=== PATIENT | male | born 1970 | race Caucasian/White ===

== ENCOUNTER 2022-10-02 11:54 | Emergency (ER) | payer OTHER, SELFPAY ==
[2022-10-02] VITALS (16 sets, daily range): BP systolic 135–163; BP diastolic 87–117; PULSE 75–100; RESP 6–29; TEMP 36.6; O2SAT 93; BMI 31.7
--- NOTE | 2022-10-02 12:45 | ECG_ITS ---
[facility] Test Date: 2022-10-02 Pat Name: JORGE BUENO Department: Room: - Gender: Male [employer]: : 1970 Requested By: Order Number: [id number] Reading MD: TUTU VILLELA Measurements Intervals [place] Rate: 76 P: 43 NV: 160 QRS: -1 QRSD: 98 T: 7 QT: 354 QTc: 384 Interpretive Statements 1100 Sinus rhythm 2440 Incomplete right bundle branch block 8102 Low QRS voltage in chest leads 9130 borderline ECG No previous ECG available for comparison Electronically Signed On 10-03-2022 6:57:27 EDT by TUTU VILLELA
--- NOTE | 2022-10-02 12:46 | CT_ITS ---
The [address] [address] Patient Name: JORGE BUENO MRN: [id number] date: 1970 Sex: M Assigned Patient Location: ER Current Patient Location: Accession/Order Number: [id number] Exam Date: 10/02/2022 13:00 Report Date: 10/02/2022 13:16 At the request of: DELGADO JOHNSON Procedure: CT head/brain wo con EXAM: CT head/brain wo con HISTORY: vertigo COMPARISON: None. TECHNIQUE: Axial CT scans through the head were obtained without IV contrast administration. Dose reduction techniques were achieved by using: automated exposure control and/or adjustment of mA and /or kV according to patient size and/or use of iterative reconstruction technique. FINDINGS: There is no evidence of acute intracranial hemorrhage or abnormal extra-axial fluid collection. No mass effect or midline shift is seen. There is no evidence of large acute territorial infarction. There is no hydrocephalus. To the limit of CT, the posterior fossa appears unremarkable. No definite acute fracture is identified. Soft tissues are unremarkable. The visualized orbits show no abnormal mass. The visualized paranasal sinuses show no air-fluid level. Mastoid air cells are clear. IMPRESSION: No CT evidence of acute intracranial abnormality. If there is sufficient clinical concern for acute brain parenchymal pathology, consider MRI for further evaluation. Electronically authenticated by: FRANKY LYNN Date: 10/02/2022 13:16
[2022-10-02] MEDS: ONDANSETRON PF 4 MG/2 ML VIAL IV (13:04)
[2022-10-02] MEDS: 0.9 % SODIUM CHLORIDE 1,000 ML 999 ML IV (13:04)
[2022-10-02] MEDS: MECLIZINE HCL 12.5 MG TABLET 25 MG PO (13:04)
--- NOTE | 2022-10-02 13:22 | ED.DIZZY1 ---
HPI - Dizziness General Chief Complaint: Dizziness Stated Complaint: GENERAL WEAKNESS Time Seen by Provider: 10/02/22 12:45 Source: patient Mode of arrival: walk-in Limitations: no limitations History of Present Illness HPI Narrative: was dizzy and nauseous yesterday but was tolerable. However when he woke this morning it was much worse. he had an intense sensation of spinning and felt like he was going to pass out . No headache, visual changes, ringing in the ears, ear pain, sore throat or upper respiratory symptoms. Related Data Previous Rx's Medication Instructions Recorded meclizine 25 mg tablet 25 mg PO .q8hr PRN vertigo #30 tabs 10/02/22 ondansetron 4 mg disintegrating 4 mg PO Q6H PRN nausea #20 tabs 10/02/22 tablet Allergies Allergy/AdvReac Type Severity Reaction Status Date / Time No Known Drug Allergies Allergy Verified 10/02/22 11:59 Exam Narrative Exam Narrative: Nurses notes and vital signs reviewed and patient is not hypoxic. afebrile General: Well-appearing and in no apparent distress. Skin: Warm, dry, no pallor noted. No rash. Head: Normocephalic, atraumatic. Neck: Supple, non-tender. Eye: Pupils are equal, round and EOMI. No scleral icterus. Ears, Nose, Mouth, and Throat: TM are clear, no nasal mucosal hypertrophy. Oral mucosa is moist, no posterior oropharynx erythema, uvula is mid-line Cardiovascular: Regular Rate and Rhythm without murmur, gallop or rub. Respiratory: No accessory muscle use or respiratory distress. Lungs are clear to auscultation, no wheezing, rales or rhonchi Musculoskeletal: normal ROM, no calf or popliteal tenderness, no lower extremity edema/swelling GI: Abdomen is soft, non-distended. Normal bowel sounds. No tenderness to palpation. No rebound, guarding, or rigidity noted. Neurological: A&O x4. No cranial nerve dysfunction observed. No truncal ataxia but head movement exacerbates/worsens the vertigo. Moves all extremities. Sensation intact. Psychiatric: Cooperative and interactive. Normal mood and affect. Constitutional Vital Signs - 24 hr 10/02/22 11:59 10/02/22 12:08 10/02/22 12:09 Temperature 97.9 F Pulse Rate 75 78 Pulse Rate [Monitor] 84 Pulse Rate [orthostatic lying] Pulse Rate [orthostatic sitting] Pulse Rate [orthostatic standing] Respiratory Rate 16 14 16 Blood Pressure Blood Pressure [Right Arm] 135/93 H Blood Pressure [orthostatic lying Right Arm] Blood Pressure [orthostatic sitting Right Arm] Blood Pressure [orthostatic standing Right Arm] Pulse Oximetry 93 L Oxygen Delivery Method Room Air 10/02/22 12:10 10/02/22 12:10 10/02/22 12:30 Temperature Pulse Rate 80 75 85 Pulse Rate [Monitor] Pulse Rate [orthostatic lying] Pulse Rate [orthostatic sitting] Pulse Rate [orthostatic standing] Respiratory Rate 19 13 12 Blood Pressure 143/103 H 143/103 H 136/92 H Blood Pressure [Right Arm] Blood Pressure [orthostatic lying Right Arm] Blood Pressure [orthostatic sitting Right Arm] Blood Pressure [orthostatic standing Right Arm] Pulse Oximetry Oxygen Delivery Method 10/02/22 12:52 10/02/22 12:30 10/02/22 12:50 Temperature Pulse Rate 88 78 Pulse Rate [Monitor] Pulse Rate [orthostatic lying] 87 Pulse Rate [orthostatic sitting] 100 H Pulse Rate [orthostatic standing] 84 Respiratory Rate 21 11 L Blood Pressure 136/92 H 149/87 H Blood Pressure [Right Arm] Blood Pressure [orthostatic lying Right Arm] 149/87 H Blood Pressure [orthostatic sitting Right Arm] 143/97 H Blood Pressure [orthostatic standing Right Arm] 136/109 H Pulse Oximetry Oxygen Delivery Method 10/02/22 12:51 10/02/22 12:52 10/02/22 13:03 Temperature Pulse Rate 82 83 Pulse Rate [Monitor] Pulse Rate [orthostatic lying] Pulse Rate [orthostatic sitting] Pulse Rate [orthostatic standing] Respiratory Rate 12 13 Blood Pressure 143/97 H 136/109 H Blood Pressure [Right Arm] Blood Pressure [orthostatic lying Right Arm] Blood Pressure [orthostatic sitting Right Arm] Blood Pressure [orthostatic standing Right Arm] Pulse Oximetry Oxygen Delivery Method 10/02/22 13:10 Temperature Pulse Rate 82 Pulse Rate [Monitor] Pulse Rate [orthostatic lying] Pulse Rate [orthostatic sitting] Pulse Rate [orthostatic standing] Respiratory Rate 12 Blood Pressure Blood Pressure [Right Arm] Blood Pressure [orthostatic lying Right Arm] Blood Pressure [orthostatic sitting Right Arm] Blood Pressure [orthostatic standing Right Arm] Pulse Oximetry Oxygen Delivery Method Course Vital Signs Vital signs: Vital Signs Temperature 97.9 F 10/02/22 11:59 Pulse Rate 84 10/02/22 11:59 Respiratory Rate 16 10/02/22 11:59 Blood Pressure 135/93 H 10/02/22 11:59 Pulse Oximetry 93 L 10/02/22 11:59 Oxygen Delivery Method Room Air 10/02/22 11:59 Temperature 97.9 F 10/02/22 11:59 Pulse Rate 82 10/02/22 13:10 Respiratory Rate 12 10/02/22 13:10 Blood Pressure 149/87 H 10/02/22 12:52 Pulse Oximetry 93 L 10/02/22 11:59 Oxygen Delivery Method Room Air 10/02/22 11:59 MDM - Dizziness MDM Narrative Medical decision making narrative: Patient was placed on property assessment monitor and EKG obtained. Blood drawn and sent for evaluation. Orthostatics were negative Sent for head CT, which was unremarkable. He had decrease in his nausea after getting MS IVF, IV zofran and oral Meclizine but his vertigo was unchanged. he was ordered to receive IV Valium and IV Solu-medrol. We had EMR problems and went back to paper charting for a while. While we are using EMR again the lab is still down so they are faxing results to us. CBC notable for normal WBC, slightly increased Hb at 17.7, normal platelets. BMP unremarkable with normal electrolytes, slightly elevated Glucose 144 and elevated BUN and Cr at 20, 1.36 Results, diagnosis and plan for out-patient treatment discussed with the patient. He was discharged home with prescriptions for zofran and Meclizine, recommend PCP follow up or ED return if he worsens. Lab Data Attestation: I reviewed the patient's lab results. Lab results narrative: We had EMR problems and went back to paper charting for a while. While we are using EMR again the lab is still down so they are faxing results to us. CBC notable for normal WBC, slightly increased Hb at 17.7, normal platelets. BMP unremarkable with normal electrolytes, slightly elevated Glucose 144 and elevated BUN and Cr at 20, 1.36 Labs: Lab Results 10/02/22 Range/Units 12:31 Sodium 139 (136-145) mmol/L Potassium 4.8 (3.5-5.1) mmol/L Chloride 106 (98-107) mmol/L Carbon Dioxide 27.7 (21.0-32.0) mmol/L Anion Gap 10.1 BUN 20.0 H (7.0-18.0) mg/dL Creatinine 1.36 H (0.70-1.30) mg/dL Est GFR ( Amer) >60 (>=60) Est GFR (Non-Af Amer) 55 L (>=60) BUN/Creatinine Ratio 14.7 Glucose 144 H (74-106) mg/dL Calcium 9.0 (8.5-10.1) mg/dL Imaging Data CT scan - head: Radiologist's impression: Patient Name: JORGE BUENO MRN: [facility]:[id number] date: 1970 Sex: M Assigned Patient Location: ER Current Patient Location: Accession/Order Number: [id number] Exam Date: 10/02/2022 13:00 Report Date: 10/02/2022 13:16 At the request of: DELGADO JOHNSON Procedure: CT head/brain wo con EXAM: CT head/brain wo con HISTORY: vertigo COMPARISON: None. TECHNIQUE: Axial CT scans through the head were obtained without IV contrast administration. Dose reduction techniques were achieved by using: automated exposure control and/or adjustment of mA and /or kV according to patient size and/or use of iterative reconstruction technique. FINDINGS: There is no evidence of acute intracranial hemorrhage or abnormal extra-axial fluid collection. No mass effect or midline shift is seen. There is no evidence of large acute territorial infarction. There is no hydrocephalus. To the limit of CT, the posterior fossa appears unremarkable. No definite acute fracture is identified. Soft tissues are unremarkable. The visualized orbits show no abnormal mass. The visualized paranasal sinuses show no air-fluid level. Mastoid air cells are clear. IMPRESSION: No CT evidence of acute intracranial abnormality. If there is sufficient clinical concern for acute brain parenchymal pathology, consider MRI for further evaluation. Electronically authenticated by: FRANKY LYNN Date: 10/02/2022 13:16 ECG Data Interpretation: EKG interpretation: Emergency Department physician interpretation. Normal sinus rhythm at 76bpm. incomplete right bundle-branch block. No ST segment elevation or depression. Discharge Plan Discharge Chief Complaint: Dizziness Clinical Impression: Benign paroxysmal positional vertigo Patient Disposition: Home, Self-Care Time of Disposition Decision: 14:30 Prescriptions / Home Meds: New meclizine 25 mg tablet 25 mg PO .q8hr PRN (Reason: vertigo) Qty: 30 0RF ondansetron 4 mg tablet,disintegrating 4 mg PO Q6H PRN (Reason: nausea) Qty: 20 0RF Instructions: Benign Paroxysmal Positional Vertigo (ED) Stand Alone Forms: Portal Instructions Referrals: Physician,Non-Staff, MD [Primary Care Provider] - 1 week
[2022-10-02 14:15] LABS: Anion Gap 10.1; BUN Creatinine Ratio 14.7; Carbon Dioxide 27.7 mmol/L (21.0-32.0); Chloride 106 mmol/L (98-107); Estimated GFR (African America >60 (>=60); Estimated GFR (Non-African Ame 55 (>=60); Glucose 144 mg/dL (74-106); Potassium 4.8 mmol/L (3.5-5.1); Sodium 139 mmol/L (136-145)
[2022-10-02] MEDS: DIAZEPAM 5 MG/ML - 2 ML INJ SYRINGE 2 MG IV (14:24)
[2022-10-02] MEDS: METHYLPREDNISOLONE SOD SUCC PF 125 MG/2 ML VIAL IVP (14:25)
[2022-10-02 16:23] LABS: Basophils Percent Auto 0.3 % (0.2-2.0); Eosinophils Percent Auto 0.5 % (0.9-7.0); Hematocrit 50.3 % (42.0-54.0); Hemoglobin 17.7 g/dL (14.0-18.0); Immature Granulocytes Abs Auto 0.01 10^3/uL (0.00-0.03); Immature Granulocytes Pct Auto 0.2 % (0.0-0.5); Lymphocytes Absolute Auto 0.8 10^3/uL (1.2-3.8); Lymphocytes Percent Auto 12.3 % (20.5-60.0); Mean Corpuscular HGB Conc 35.2 g/dL (29.9-35.2); Mean Corpuscular Hemoglobin 30.7 pg (25.9-34.0); Mean Corpuscular Volume 87.2 fL (80.0-94.0); Mean Platelet Volume 10.3 fL (9.5-13.5); Monocytes Absolute Auto 0.2 10^3/uL (0.3-0.8); Monocytes Percent Auto 3.1 % (1.7-12.0); Neutrophils Absolute Auto 5.1 10^3/uL (1.4-6.5); Neutrophils Percent Auto 83.6 % (43.0-75.0); Platelet Count 225 10^3/uL (150-450); Red Blood Count 5.77 10^6/uL (4.70-6.10); White Blood Count 6.1 10^3/uL (4.0-11.0)
== END 2022-10-02 15:00 | disposition home or self-care (01) ==
PROVIDERS: Emergency Provider Emergency Medicine
DX: H81.10 Benign paroxysmal vertigo, unspecified ear (principal)
CPT/HCPCS: 36415; 70450; 80048; 85025; 93005; 96361; 96374; 96375; 99285; J2930